=== PATIENT | male | born 1975 | race Caucasian/White ===

== ENCOUNTER 2018-01-01 13:04 | Outpatient (CLI) | payer OTHER ==
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
== END 2018-01-01 13:05 | disposition home or self-care (01) ==
LOC: DI 13:04
PROVIDERS: ATTEND Student in an Organized Health Care Education/Training Program
DX: M25.411 Effusion, right shoulder (principal); M75.91 Shoulder lesion, unspecified, right shoulder